=== PATIENT | male | born 1980 | race Caucasian/White ===

== ENCOUNTER → 2019-07-09 | Outpatient (CLI) | payer BC, MEDICARE ==
[~2019-07-09] MED LIST: ACET500T68 PO; BUPR300T92 PO; CHOL200027 PO; DIPH25CA58 PO; DOCU-109 PO; FENO48TA16 PO; LORA0.5T96 PO; MELA3TAB43 PO; METH10TA4 PO; METH150T PO; METH30CP PO; METH5TAB2 PO; METO25TA4 PO; ONDA4TAB7 PO; PANT40TA77 PO; POLY15DR27 EACHEYE; SENN8.6T11 PO; TEST200V3 IM; URSO250T3 PO; VALA500T5 PO; VENL150C6 PO
--- NOTE | 2019-07-09 22:59 | PAIN ---
DATE OF SERVICE: 07/09/2019 INITIAL CONSULTATION FOR PAIN CLINIC CHIEF COMPLAINT: Left-sided abdominal upper quadrant pain. HISTORY OF PRESENT ILLNESS: This is a 38-year-old male who presents with history of pain since about 2012. The patient was diagnosed with myelofibrosis at that time with treatment including bone marrow transplant and chemotherapy. No current evidence of cancer per his oncologist and Palliative care physician. The patient still has significant pain in the left upper quadrant. He has had multiple workups with CT scans, MRI scans. He sees a pain clinic physician at the [facility], Dr. Betts, who has tried multiple interventional techniques as well as medications and eventually ended up with intrathecal pain pump, which he reports has morphine in it as a single drug at this time. The patient reports still significant pain in the left upper quadrant, comes and goes as well as grabbing, can be sharp and stabbing. When it is very bad, it radiates to the posterior aspect of the lower rib margin on the left side as well. Most of the time, it changes during the day, worse with activity, but can awaken him from sleep with severe pain as well. The patient reports it depends on the day, today is a fairly good day when the pain is only minimal. He has had multiple nerve blocks by his description. Also, undergoes counseling and sees a psychologist and exercise. He has been seen at the [facility] in the past as well with some relaxation techniques that he still uses, that he learned there. The patient reports he is considering removing the intrathecal pump as it has not been significantly beneficial for him. He is currently taking methadone as well as acetaminophen, fentanyl, hydrocodone, without significant decrease in the pain for long-term. The patient rates his disability rating from 0-10, 10 being the worst, is a 9 with family and home responsibility, sexual behavior and life support activities, 8 with self-care, 10 with recreation and social activity and occupational activities. PAST MEDICAL HISTORY: Significant for myelofibrosis, status post chemotherapy, also shortness of breath, hypertension, dizziness, headaches, and depression. PREVIOUS SURGERIES: Include stem cell transplant, bone marrow biopsies, intrathecal pain pump placement, tonsillectomy, frenulectomy, wisdom teeth extraction, nasal surgery, cholecystectomy, and left inguinal hernia repair. CURRENT MEDICATIONS: Include testosterone, Zofran, Relistor, Benadryl, vitamin D3, Valtrex, methadone, Ativan, venlafaxine, Ritalin, bupropion, methylphenidate, melatonin, senna, ursodiol, docusate, pantoprazole, TriCor, metoprolol and artificial tears. ALLERGIES: The patient has no known drug allergies. FAMILY HISTORY: Significant for cancer in a distant uncle. SOCIAL HISTORY: The patient does not drink alcohol, does not smoke, does not use any illegal, illicit or recreational drugs. REVIEW OF SYSTEMS: The patient's review of systems is positive for those items mentioned in history of present illness. All systems reviewed and otherwise negative. It is complete, full and well documented on the patient's chart. PHYSICAL EXAMINATION: VITAL SIGNS: The patient's blood pressure is 117/86, pulse 93, respirations 18, temperature 99.1 degrees Fahrenheit, height 6 feet 2 inches, weight is 238 pounds. GENERAL: The patient is awake, alert, oriented, appropriate, very pleasant demeanor. HEENT: Shows normocephalic, atraumatic. The patient wears eye glasses. Extraocular movements are intact and symmetrical. Oral cavity: Mucous membranes moist and pink. Dentition is intact. NECK: Shows anterior throat supple without palpable lymphadenopathy noted. Swallow reflex symmetrical. CHEST: Shows normal on inspection. Breath sounds are clear bilaterally. HEART: Shows S1, S2 clear. No murmurs auscultated. ABDOMEN: Shows soft, nontender, nondistended even with deep palpation in the left upper quadrant at the rib margin and anterior to this and lateral to this. No reproduction of pain is demonstrated. No organomegaly is demonstrated. No rebound or guarding. Bowel sounds are positive and present in all 4 quadrants of the abdomen. The patient has good rotational motion of the thoracic cage both laterally as well as extension and flexion without significant increase in pain in the abdomen or elsewhere. Lumbar spine likewise shows good rotational motion without exacerbation of pain. BACK: The patient's back shows spine grossly in the midline. Normal appearing thoracic kyphosis, lumbar lordotic curvature and cervical lordotic curvature. Cervical spine shows full rotational motion of the cervical spine without difficulty or pain reported including extension, flexion. Again, this is true with thoracic and lumbar spines as well. No tenderness over the spinous process, sacrum or sacroiliac region. No tenderness over the rib margins posteriorly bilaterally as well. The patient does have intrathecal pump, which is in the right superior medial gluteus. Easily palpable, but nontender with palpation with well-healed surgical scarring on the right and the left posterior superior gluteus from previous pump removal secondary to infection on the left side. EXTREMITIES: The patient's extremities show upper extremity deep tendon reflexes 2+ in the biceps and triceps tendons. 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 Peripheral pulses are 2+ radial. No peripheral edema is noted. Lower extremities show deep tendon reflexes 2+ in the patellar, 1+ tendo-calcaneus tendons. Motor exam is strong with 5/5 dorsiflexion, extension, quadriceps and hamstring flexion. Peripheral pulses are 1+ posterior tibia. No peripheral edema in the lower extremities as well. SKIN: Shows warm and dry, good turgor. No edema. No sores or bruising. The patient relates a previous bout of shingles in the upper lumbar distribution on the left, but no residual scars, bruising or blisters are noted throughout. IMPRESSION: 1. This is a 38-year-old male with approximate 6-year history of myelofibrosis, status post chemotherapy and left upper quadrant abdominal pain, unknown etiology after multiple diagnostic, radiological studies, etc., with persistent pain. 2. Intrathecal pump therapy with morphine. 3. Hypertension. 4. Depression. RECOMMENDATIONS: Discussed options in significant detail today and extensively. We would recommend at this time before considering removal of intrathecal pump to add clonidine to the morphine mixture and see if this may help with some neuropathic pain in the left upper quadrant. If not, I would recommend replacing the morphine and clonidine with Prialt to see if this may have better effect as this works well in some patients with a nonnarcotic intrathecal solution. The patient understands and agrees. We will make these recommendations to his referring physician. DOMITILA GARZA MD DR: ONELIA/bernarda JOB#: [id number] / [id number] PEGGY Davis
== END | disposition home or self-care (01) ==
LOC: PNCL 11:12
PROVIDERS: ATTEND Anesthesiology
DX: R10.12 Left upper quadrant pain (principal); I10 Essential (primary) hypertension; F32.9 Major depressive disorder, single episode, unspecified; Z85.79 Personal history of other malignant neoplasms of lymphoid, hematopoietic and related tissues; Z92.21 Personal history of antineoplastic chemotherapy; Z90.49 Acquired absence of other specified parts of digestive tract
CPT/HCPCS: G0463